=== PATIENT | male | born 1940 | race Caucasian/White ===

== ENCOUNTER → 2017-11-29 | Outpatient (CLI) | payer MEDICARE, OTHER ==
[~2017-11-29] MED LIST: AMIT10; AMLO5; CHOL10002; DIVA250EC; FISH1000; LOSARTAN POTAS100 MG; Mobic15 MG; PSYL5.85P; RANI150; ROSU10TA; SERT100; UBID10; VALS80; VITAMIN B; Viagra100 MG
[2017-11-29 14:21] LABS: Adenovirus F 40/41 Not Detected (NOT DETECT); Astrovirus Not Detected (NOT DETECT); Campylobacter Sp Not Detected (NOT DETECT); Cryptosporidium Not Detected (NOT DETECT); Cyclospora Cayetanensis Not Detected (NOT DETECT); E. Coli O157 Not Detected (NOT DETECT); Entamoeba Histolytica Not Detected (NOT DETECT); Enteroaggregative E. coli-EAEC Not Detected (NOT DETECT); Enteropathogenic E. coli-EPEC Not Detected (NOT DETECT); Enterotoxigenic E. coli-ETEC Not Detected (NOT DETECT); Giardia Lamblia Not Detected (NOT DETECT); Norovirus GI/GII Not Detected (NOT DETECT); Plesiomonas Shigelloides Not Detected (NOT DETECT); Rotavirus A Not Detected (NOT DETECT); Salmonella Sp Not Detected (NOT DETECT); Sapovirus Not Detected (NOT DETECT); Shiga Toxin-prod E. coli-STEC Not Detected (NOT DETECT); Shigella/Enteroin E. coli-EIEC Not Detected (NOT DETECT); Vibrio Cholerae Not Detected (NOT DETECT); Vibrio Sp Not Detected (NOT DETECT); Yersinia Enterocolitica Not Detected (NOT DETECT)
== END ==
LOC: LAB 14:18
PROVIDERS: Internal Medicine Gastroenterology
DX: R19.7 Diarrhea, unspecified (principal); R10.84 Generalized abdominal pain
CPT/HCPCS: 87507

== ENCOUNTER → 2017-12-28 | Outpatient (CLI) | payer MEDICARE, OTHER ==
[2017-12-31 13:46] LABS: Stool Occult Bld Immuno 2 Negative (NEGATIVE)
== END ==
LOC: LAB SHORT 10:11 → LAB 10:11
PROVIDERS: Internal Medicine Gastroenterology
DX: R19.4 Change in bowel habit (principal); Z86.010 Personal history of colon polyps
CPT/HCPCS: G0328

== ENCOUNTER → 2019-03-04 | Outpatient (CLI) | payer MEDICARE, OTHER | END | disposition home or self-care (01) | LOC: LAB SHORT 09:54 → LAB 09:54 | DX: M48.061 Spinal stenosis, lumbar region without neurogenic claudication (principal); F12.90 Cannabis use, unspecified, uncomplicated | CPT/HCPCS: G0480 ==

== ENCOUNTER 2020-11-01 08:01 | Day surgery (SDC) | payer MEDICARE, OTHER ==
[~2020-11-01] VITALS: Ht 167.6 cm; Wt 83.0 kg
[~2020-11-01 08:01] MED LIST changes: +CILO100 PO; +CITA20 PO; -DIVA250EC; +DIVA250EC PO; +Inderal40 MG PO; -LOSARTAN POTAS100 MG; +LOSARTAN POTAS100 MG PO; +OMEP20ER PO; -Viagra100 MG; +Viagra100 MG PO
[2020-11-01 08:51] LABS: Influenza A, PCR NEGATIVE (NEGATIVE); Influenza B, PCR NEGATIVE (NEGATIVE); Resp Syncytial Virus, PCR NEGATIVE (NEGATIVE); SARS-Cov-2 (COVID-19) PCR, MMC NEGATIVE (NEGATIVE)
--- NOTE | 2020-11-01 14:07 | NUR ---
PT DRESSED, IV DC'D INTACT, L GROIN SITE STABLE, PT DC'D BY WC BY RILEY CHUNG WITH PRESENET AND DRIVING PT HOME.
[2020-12-21] MEDS ORDERED: CLOP75 PO (13:45)
[2020-12-21] MEDS ORDERED: Pravachol40 MG PO (13:46)
[2020-12-21] MEDS ORDERED: Ultram50 MG PO (13:48)
== END 2020-11-01 15:07 | disposition home or self-care (01) ==
LOC: MHTC 08:01
PROVIDERS: Radiology Diagnostic Radiology
DX: I70.213 Atherosclerosis of native arteries of extremities with intermittent claudication, bilateral legs (principal); I12.9 Hypertensive chronic kidney disease with stage 1 through stage 4 chronic kidney disease, or unspecified chronic kidney disease; N18.2 Chronic kidney disease, stage 2 (mild); E78.5 Hyperlipidemia, unspecified; K21.9 Gastro-esophageal reflux disease without esophagitis; G40.909 Epilepsy, unspecified, not intractable, without status epilepticus; Z88.1 Allergy status to other antibiotic agents; Z88.8 Allergy status to other drugs, medicaments and biological substances; Z20.822 Contact with and (suspected) exposure to COVID-19
CPT/HCPCS: 0241U; 37228; 37232; 75625; 75716; 75774; 85347; 99152; 99153; C1714; C1725; C1757; C1760; C1769; C1874; C1887; C1894; C2623; C9767; J1644; J2250; J3010; J7030; J7050; Q9967

== ENCOUNTER 2020-12-22 08:29 | Day surgery (SDC) | payer MEDICARE, OTHER ==
[~2020-12-22] VITALS: Ht 167.6 cm; Wt 82.7 kg
[~2020-12-22 08:29] MED LIST changes: +CLOP75 PO; +Pravachol40 MG PO; +Ultram50 MG PO
[2020-12-22] MEDS ORDERED: Amitriptyline H10 MG PO (09:35)
--- NOTE | 2020-12-22 16:24 | NUR ---
DISCHARGE PT REMAINED A&OX3 AND DENIED ANY PAIN DURING RECOVERY. R GROIN SITE REMAINED CDI-NO HEMATOMA NOTED. IV DC'D WITH CANULA INTACT. PT ABLE TO DRESS SELF WITH ASSITANCE FROM SPOUSE. PT UP TO RESTROOM WITH SHUFFLED GAIT (SPOUSE STATED THIS IS USUAL FOR AMUBLATION) TO VOID. DISCHARGE PAPERWORK GONE OVER WITH PT AND SPOUSE. PT AND SPOUSE VERBALY STATED THE UNDERSTANDING OF THE DISHCARGE EDUCATION AND DENIED ANY QUESTIONS AT THIS TIME. PT WHEELED OUT BY THIS NURSE.
== END 2020-12-22 15:30 | disposition home or self-care (01) ==
LOC: MHTC 08:29
DX: I70.213 Atherosclerosis of native arteries of extremities with intermittent claudication, bilateral legs (principal); I12.9 Hypertensive chronic kidney disease with stage 1 through stage 4 chronic kidney disease, or unspecified chronic kidney disease; N18.2 Chronic kidney disease, stage 2 (mild); E78.5 Hyperlipidemia, unspecified; K21.9 Gastro-esophageal reflux disease without esophagitis; F32.9 Major depressive disorder, single episode, unspecified; G40.909 Epilepsy, unspecified, not intractable, without status epilepticus; Z87.891 Personal history of nicotine dependence
CPT/HCPCS: 75716; 75774; 85347; 99152; 99153; C1725; C1757; C1760; C1769; C1887; C1894; C9764; C9772; J1644; J2250; J3010; J7030; J7050; Q9967

== ENCOUNTER 2021-02-09 11:17 | Day surgery (SDC) | payer MEDICARE, OTHER ==
[~2021-02-09] VITALS: Ht 167.6 cm; Wt 85.7 kg
[~2021-02-09 11:17] MED LIST changes: +Amitriptyline H10 MG PO
[2021-02-09] MEDS ORDERED: ASPIR 8181 M1 PO (11:59)
--- NOTE | 2021-02-09 12:17 | NUR ---
PATIENT READY FOR PROCEDURE. ALLOWED TO THE BEDSIDE. CONSENTS AND ADMISSION ASSESSMENTS COMPLETE. CALL LIGHT IN REACH.
--- NOTE | 2021-02-09 18:35 | NUR ---
pt up and dressed. groin site and pedal site stable. discharge gone over with and with pt, both verbalize understanding. saline lock out with catheter intact. pt to private vehicle per w/c.
== END 2021-02-09 22:56 | disposition home or self-care (01) ==
LOC: MHTC 11:17
DX: I70.213 Atherosclerosis of native arteries of extremities with intermittent claudication, bilateral legs (principal); I12.9 Hypertensive chronic kidney disease with stage 1 through stage 4 chronic kidney disease, or unspecified chronic kidney disease; N18.2 Chronic kidney disease, stage 2 (mild); K21.9 Gastro-esophageal reflux disease without esophagitis; E78.5 Hyperlipidemia, unspecified; G40.909 Epilepsy, unspecified, not intractable, without status epilepticus; Z79.82 Long term (current) use of aspirin; Z98.62 Peripheral vascular angioplasty status; Z87.891 Personal history of nicotine dependence; Z88.1 Allergy status to other antibiotic agents; Z88.8 Allergy status to other drugs, medicaments and biological substances; Z79.02 Long term (current) use of antithrombotics/antiplatelets
CPT/HCPCS: 36140; 37224; 37228; 75625; 75716; 75774; 76937; 85347; 99152; 99153; C1725; C1760; C1769; C1887; C1894; J1644; J2250; J3010; J7030; J7040; J7050; Q9967

== ENCOUNTER 2021-10-17 06:55 | Day surgery (SDC) | payer MEDICARE, OTHER ==
[~2021-10-17] VITALS: Ht 167.6 cm; Wt 86.5 kg
[~2021-10-17 06:55] MED LIST changes: +ASPIR 8181 M1 PO
== END 2021-10-17 09:52 | disposition home or self-care (01) ==
LOC: ORSCSDS 06:55
PROVIDERS: Orthopaedic Surgery
PROC: 01S40ZZ Reposition Ulnar Nerve, Open Approach (ICD-10-PCS; principal; 2021-10-17 08:00)
PROC: 01N50ZZ Release Median Nerve, Open Approach (ICD-10-PCS; principal; 2021-10-17 08:00)
DX: G56.02 Carpal tunnel syndrome, left upper limb (principal); G56.22 Lesion of ulnar nerve, left upper limb; I10 Essential (primary) hypertension; K21.9 Gastro-esophageal reflux disease without esophagitis; G47.33 Obstructive sleep apnea (adult) (pediatric); Z79.899 Other long term (current) drug therapy
CPT/HCPCS: J0690; J1100; J2370; J2405; J2704; J2795; J3010; J7120

== ENCOUNTER 2022-01-04 10:38 | Day surgery (SDC) | payer MEDICARE, OTHER ==
[~2022-01-04] VITALS: Ht 167.6 cm; Wt 81.8 kg
[~2022-01-04 10:38] MED LIST changes: +CYCL10 PO; +KATERZIA1 MG/1 ML PO; +ROSU10TA PO; +TRAM50 PO
[2022-01-04] MEDS ORDERED: VENL75ER PO (11:06)
== END 2022-01-04 12:12 | disposition home or self-care (01) ==
LOC: ORSCSDS 10:38
PROVIDERS: Ophthalmology
PROC: 08RJ3JZ Replacement of Right Lens with Synthetic Substitute, Percutaneous Approach (ICD-10-PCS; principal; 2022-01-04 11:30)
DX: H25.13 Age-related nuclear cataract, bilateral (principal); I10 Essential (primary) hypertension; K27.9 Peptic ulcer, site unspecified, unspecified as acute or chronic, without hemorrhage or perforation; K21.9 Gastro-esophageal reflux disease without esophagitis; G47.33 Obstructive sleep apnea (adult) (pediatric); Z79.01 Long term (current) use of anticoagulants; Z79.82 Long term (current) use of aspirin; Z79.899 Other long term (current) drug therapy
CPT/HCPCS: J2001; J2250; J3010; J3301; J7040; V2632

== ENCOUNTER 2022-01-12 15:11 | Emergency (ER) | payer MEDICARE, OTHER ==
[~2022-01-12] VITALS: Ht 167.6 cm; Wt 81.7 kg
[~2022-01-12 15:11] MED LIST changes: +VENL75ER PO
[2022-01-12 15:55] LABS: BASOPHILS ABSOLUTE AUTO 0.06 K/mm3 (0.00-0.23); BASOPHILS PERCENT AUTO 1 % (0-2); EOSINOPHILS ABSOLUTE AUTO 0.24 K/mm3 (0.00-0.68); EOSINOPHILS PERCENT AUTO 3 % (0-6); Hematocrit 40.3 % (37.0-53.0); Hemoglobin 13.6 g/dL (13.5-17.5); IMMATURE GRAN ABSOLUTE AUTO 0.03 K/mm3 (0.00-0.10); IMMATURE GRAN PERCENT AUTO 0 % (0-1); LYMPHOCYTES ABSOLUTE AUTO 3.63 K/mm3 (0.84-5.20); LYMPHOCYTES PERCENT AUTO 41 % (21-46); MONOCYTES ABSOLUTE AUTO 0.98 K/mm3 (0.16-1.47); MONOCYTES PERCENT AUTO 11 % (4-13); Mean Corpuscular HGB 31.6 pg (26.0-34.0); Mean Corpuscular HGB Conc 33.7 g/dL (31.5-36.5); Mean Corpuscular Volume 94 fL (80-100); NEUTROPHILS ABSOLUTE AUTO 4.01 K/mm3 (1.96-9.15); NEUTROPHILS PERCENT AUTO 45 % (41-73); Platelet Count 260 K/mm3 (150-400); RDW Coefficient Variation 13.2 % (11.7-14.2); Red Blood Cell Count 4.31 M/mm3 (4.30-5.90); White Blood Cell Count 8.95 K/mm3 (4.00-11.30)
[2022-01-12 16:08] LABS: Alanine Aminotransfer (ALT/SGP 28 U/L (12-78); Albumin, Blood 3.6 g/dL (3.4-5.0); Alk Phos 62 U/L (50-136); Anion Gap 6 mmol/L (6-16); Aspartate Aminotrans (AST/SGOT 20 U/L (12-37); Bilirubin, Total 0.3 mg/dL (0.1-1.0); Blood Urea Nitrogen 29 mg/dL (8-24); Bun/Creatinine Ratio 26.6 (12.0-20.0); CO2, Blood 25 mmol/L (21-32); Calcium, Blood 9.1 mg/dL (8.5-10.1); Chloride, Blood 108 mmol/L (98-108); Creatinine, Blood 1.09 mg/dL (0.60-1.20); Globulin, Blood 3.6 g/dL (2.2-4.0); Glomerular Filtration Rate >60 (60-); Glucose, Blood 93 mg/dL (70-99); Potassium, Blood 4.2 mmol/L (3.5-5.5); Sodium, Blood 139 mmol/L (136-145); Total Protein, Blood 7.2 g/dL (6.4-8.2)
[2022-01-12 18:18] LABS: Valproic Acid 44.5 ug/mL (50.0-100.0)
[2022-01-12 20:41] LABS: Influenza A, PCR NEGATIVE (NEGATIVE); Influenza B, PCR NEGATIVE (NEGATIVE); Resp Syncytial Virus, PCR NEGATIVE (NEGATIVE); SARS-Cov-2 (COVID-19) PCR, MMC NEGATIVE (NEGATIVE)
== END 2022-01-12 20:51 | disposition short-term general hospital (02) ==
LOC: ER 15:11
PROVIDERS: Emergency Medicine; Physician Assistant
DX: K92.2 Gastrointestinal hemorrhage, unspecified (principal); I10 Essential (primary) hypertension; Z20.822 Contact with and (suspected) exposure to COVID-19; Z88.1 Allergy status to other antibiotic agents; Z88.8 Allergy status to other drugs, medicaments and biological substances
CPT/HCPCS: 0241U; 36415; 74174; 80053; 80164; 85025; 86850; 86900; 86901; 93005; 93010; Q9967

== ENCOUNTER 2022-01-25 11:17 | Day surgery (SDC) | payer MEDICARE, OTHER ==
[~2022-01-25] VITALS: Ht 167.6 cm; Wt 86.7 kg
[~2022-01-25 11:17] MED LIST changes: +Amlodipine Bes2.5 MG PO; +PRAVASTATIN SOD40 MG PO
--- NOTE | 2022-01-25 11:43 | NUR ---
01/25/22 1143 Monika Michael CALL LIGHT WITHIN REACH. TETRACAINE AT 1140 PLEDGETT AT 1141.
== END 2022-01-25 12:40 | disposition home or self-care (01) ==
LOC: ORSCSDS 11:17
PROVIDERS: Ophthalmology
PROC: 08RK3JZ Replacement of Left Lens with Synthetic Substitute, Percutaneous Approach (ICD-10-PCS; principal; 2022-01-25 12:30)
DX: H25.12 Age-related nuclear cataract, left eye (principal); K21.9 Gastro-esophageal reflux disease without esophagitis; G47.33 Obstructive sleep apnea (adult) (pediatric); I10 Essential (primary) hypertension; E66.9 Obesity, unspecified; Z68.30 Body mass index [BMI] 30.0-30.9, adult; Z79.01 Long term (current) use of anticoagulants; Z79.82 Long term (current) use of aspirin; Z79.899 Other long term (current) drug therapy
CPT/HCPCS: J2001; J2250; J3010; J3301; J7040; V2632

== ENCOUNTER → 2022-08-29 | Outpatient (CLI) | payer MEDICARE, OTHER | END | disposition home or self-care (01) | LOC: LAB SHORT 09:15 | DX: Z48.89 Encounter for other specified surgical aftercare (principal) | CPT/HCPCS: 87070; 87075; 87205 ==

== ENCOUNTER 2022-10-11 02:32 | Day surgery (SDC) | payer MEDICARE, OTHER | END 2022-10-11 23:03 | disposition home or self-care (01) | LOC: WOUND 02:32 | DX: T81.31XA Disruption of external operation (surgical) wound, not elsewhere classified, initial encounter (principal); G40.909 Epilepsy, unspecified, not intractable, without status epilepticus; J44.9 Chronic obstructive pulmonary disease, unspecified; G62.9 Polyneuropathy, unspecified; L03.032 Cellulitis of left toe; I70.213 Atherosclerosis of native arteries of extremities with intermittent claudication, bilateral legs; M20.5X1 Other deformities of toe(s) (acquired), right foot; M20.5X2 Other deformities of toe(s) (acquired), left foot; Z87.891 Personal history of nicotine dependence | CPT/HCPCS: A9270 ==

== ENCOUNTER 2022-10-25 02:17 | Day surgery (SDC) | payer MEDICARE, OTHER ==
[~2022-10-25 02:17] MED LIST changes: +Cymbalta20 MG PO
== END 2022-10-25 22:45 | disposition home or self-care (01) ==
LOC: WOUND 02:17
DX: T81.31XA Disruption of external operation (surgical) wound, not elsewhere classified, initial encounter (principal); L03.032 Cellulitis of left toe; S91.302A Unspecified open wound, left foot, initial encounter; I70.213 Atherosclerosis of native arteries of extremities with intermittent claudication, bilateral legs; M20.5X1 Other deformities of toe(s) (acquired), right foot; M20.5X2 Other deformities of toe(s) (acquired), left foot; J44.9 Chronic obstructive pulmonary disease, unspecified; G40.909 Epilepsy, unspecified, not intractable, without status epilepticus; G62.9 Polyneuropathy, unspecified
CPT/HCPCS: A9270; G0463

== ENCOUNTER 2022-11-01 03:42 | Day surgery (SDC) | payer MEDICARE, OTHER | END 2022-11-01 22:36 | disposition home or self-care (01) | LOC: WOUND 03:42 | DX: T81.32XA Disruption of internal operation (surgical) wound, not elsewhere classified, initial encounter (principal); L03.032 Cellulitis of left toe; I70.213 Atherosclerosis of native arteries of extremities with intermittent claudication, bilateral legs; M20.5X1 Other deformities of toe(s) (acquired), right foot; M20.5X2 Other deformities of toe(s) (acquired), left foot; S91.302D Unspecified open wound, left foot, subsequent encounter | CPT/HCPCS: A9270; G0463 ==

== ENCOUNTER 2022-11-16 00:56 | Day surgery (SDC) | payer MEDICARE, OTHER | END 2022-11-16 22:46 | disposition home or self-care (01) | LOC: WOUND 00:56 | DX: L03.032 Cellulitis of left toe (principal); I70.213 Atherosclerosis of native arteries of extremities with intermittent claudication, bilateral legs; M20.5X1 Other deformities of toe(s) (acquired), right foot; M20.5X2 Other deformities of toe(s) (acquired), left foot; M79.672 Pain in left foot; S91.302D Unspecified open wound, left foot, subsequent encounter; X58.XXXD Exposure to other specified factors, subsequent encounter; J44.9 Chronic obstructive pulmonary disease, unspecified | CPT/HCPCS: G0463 ==

== ENCOUNTER 2023-08-26 07:56 | Day surgery (SDC) | payer MEDICARE, OTHER ==
[2023-08-26] VITALS (11 sets, daily range): BP systolic 113–174; BP diastolic 33–105
[~2023-08-26] VITALS: Ht 167.6 cm; Wt 85.3 kg
[~2023-08-26 07:56] MED LIST changes: +CODACE30 PO; +MULTIPLE VITAM1 EACH PO
--- NOTE | 2023-08-26 11:54 | NUR ---
PT BACK TO RECOVER FROM LAB. PT A&Ox4. PT SITTING UP IN BED EATING BREAKFAST. RADIAL SITE SOFT AND NON-TENDER PER PT. NO BLEEDING NOTED.
--- NOTE | 2023-08-26 12:22 | NUR ---
, ANN-MARIE, AT BEDSIDE W/ PT. PT FINISHED EATING LUNCH. PT GIVEN ICE WATER PER REQUEST.
--- NOTE | 2023-08-26 12:40 | NUR ---
2CC REMOVED FROM TR BAND. NO BLEEDING NOTED. SITE SOFT AND NON-TENDER PER PT.
--- NOTE | 2023-08-26 12:48 | NUR ---
2CC REMOVED FROM TR BAND. SITE SOFT AND NON-TENDER. NO BLEEDING NOTED.
--- NOTE | 2023-08-26 13:55 | NUR ---
2cc removed from tr band. site soft and non-tender. no bleeding noted. dr barber at bedside to [facility] plan of care with pt and pt's .
--- NOTE | 2023-08-26 14:00 | NUR ---
pt ambulated to restroom w/ assistance from . pt now back in bed. repeat v/s.
--- NOTE | 2023-08-26 14:01 | NUR ---
tr band fully deflated. no bleeding noted. site soft and non-tender.
--- NOTE | 2023-08-26 14:56 | NUR ---
PT GIVEN DC INSTRUCTIONS AND VERBALIZED UNDERSTANDING. IV OUT. RADIAL SITE SOFT AND NON-TENDER PER PT. NO BLEEDING NOTED. CLOTH DOT, ARM BOARD AND SLING APPLIED. PT CHNAGED INTO CLOTHES. PT TAKEN TO PARKING LOT VIA WC. TO TAKE PT HOME.
== END 2023-08-26 14:45 | disposition home or self-care (01) ==
LOC: MHTC 07:56
DX: I25.10 Atherosclerotic heart disease of native coronary artery without angina pectoris (principal); E78.5 Hyperlipidemia, unspecified; N18.9 Chronic kidney disease, unspecified; G47.33 Obstructive sleep apnea (adult) (pediatric); I73.9 Peripheral vascular disease, unspecified; I12.9 Hypertensive chronic kidney disease with stage 1 through stage 4 chronic kidney disease, or unspecified chronic kidney disease
CPT/HCPCS: 76937; 93454; 99152; 99153; A9270; C1769; C1887; C1894; J1644; J2250; J3010; J7030; J7050; Q9967

== ENCOUNTER → 2024-08-25 | Outpatient (CLI) | payer MEDICARE, OTHER ==
[2024-08-25 17:02] LABS: BASOPHILS ABSOLUTE AUTO 0.02 K/mm3 (0.00-0.23); BASOPHILS PERCENT AUTO 0 % (0-2); EOSINOPHILS ABSOLUTE AUTO 0.09 K/mm3 (0.00-0.68); EOSINOPHILS PERCENT AUTO 1 % (0-6); Hematocrit 44.3 % (37.0-53.0); Hemoglobin 15.2 g/dL (13.5-17.5); IMMATURE GRAN ABSOLUTE AUTO 0.09 K/mm3 (0.00-0.10); IMMATURE GRAN PERCENT AUTO 1 % (0-1); LYMPHOCYTES ABSOLUTE AUTO 2.38 K/mm3 (0.84-5.20); LYMPHOCYTES PERCENT AUTO 33 % (21-46); MONOCYTES ABSOLUTE AUTO 1.07 K/mm3 (0.16-1.47); MONOCYTES PERCENT AUTO 15 % (4-13); Mean Corpuscular HGB 33.3 pg (26.0-34.0); Mean Corpuscular HGB Conc 34.3 g/dL (31.5-36.5); Mean Corpuscular Volume 97 fL (80-100); NEUTROPHILS ABSOLUTE AUTO 3.51 K/mm3 (1.96-9.15); NEUTROPHILS PERCENT AUTO 49 % (41-73); Platelet Count 244 K/mm3 (150-400); RDW Coefficient Variation 13.9 % (11.7-14.2); RDW Standard Deviation 50.2 fL (35.1-46.3); Red Blood Cell Count 4.56 M/mm3 (4.30-5.90); White Blood Cell Count 7.16 K/mm3 (4.00-11.30)
[2024-08-25 17:12] LABS: Albumin, Blood 3.7 g/dL (3.4-5.0); Albumin/Globulin Ratio 0.9 (0.8-1.8); Bilirubin, Total 0.4 mg/dL (0.1-1.0); Bun/Creatinine Ratio 17.8 (12.0-20.0); Calcium, Blood 9.1 mg/dL (8.5-10.1); Creatinine, Blood 1.85 mg/dL (0.60-1.20); Potassium, Blood 5.2 mmol/L (3.5-5.5); Total Protein, Blood 7.7 g/dL (6.4-8.2)
== END | disposition home or self-care (01) ==
LOC: LAB 16:58 → LAB SHORT 16:58
PROVIDERS: Physician Assistant
DX: R10.9 Unspecified abdominal pain (principal)
CPT/HCPCS: 80053; 83690; 85025

== ENCOUNTER → 2025-02-26 | Outpatient (CLI) | payer MEDICARE, OTHER ==
[2025-02-26 18:44] LABS: Adenovirus F 40/41 Not Detected (NOT DETECT); Astrovirus Not Detected (NOT DETECT); Campylobacter Sp Not Detected (NOT DETECT); Cryptosporidium Not Detected (NOT DETECT); Cyclospora Cayetanensis Not Detected (NOT DETECT); E. Coli O157 Not Detected (NOT DETECT); Entamoeba Histolytica Not Detected (NOT DETECT); Enteroaggregative E. coli-EAEC Not Detected (NOT DETECT); Enteropathogenic E. coli-EPEC Not Detected (NOT DETECT); Enterotoxigenic E. coli-ETEC Not Detected (NOT DETECT); Giardia Lamblia Not Detected (NOT DETECT); Norovirus GI/GII Not Detected (NOT DETECT); Plesiomonas Shigelloides Not Detected (NOT DETECT); Rotavirus A Not Detected (NOT DETECT); Salmonella Sp Not Detected (NOT DETECT); Sapovirus Not Detected (NOT DETECT); Shiga Toxin-prod E. coli-STEC Not Detected (NOT DETECT); Shigella/Enteroin E. coli-EIEC Not Detected (NOT DETECT); Vibrio Cholerae Not Detected (NOT DETECT); Vibrio Sp Not Detected (NOT DETECT); Yersinia Enterocolitica Not Detected (NOT DETECT)
[2025-02-27 12:23] LABS: Stool Occult Bld Immuno 1 Positive (NEGATIVE)
[2025-03-03 14:54] LABS: CALPROTECTIN,FECAL 67 ug/g (<=49)
== END ==
LOC: LAB 13:04 → LAB SHORT 13:04
PROVIDERS: Family Medicine
DX: R19.7 Diarrhea, unspecified (principal)
CPT/HCPCS: 83993; 87015; 87045; 87046; 87205; 87507; 87899; G0328

== ENCOUNTER → 2025-03-26 | Outpatient (CLI) | payer MEDICARE, OTHER ==
[2025-03-26 20:39] LABS: C DIFFICILE DNA NEGATIVE (Negative)
[2025-03-29 09:15] LABS: ROTAVIRUS AG BY EIA Negative (Negative)
[2025-03-29 13:29] LABS: GIARDIA ANTIGEN BY EIA Negative (Negative)
[2025-03-29 13:31] LABS: CRYPTOSPORIDIUM ANTIGEN BY EIA Negative (Negative)
[2025-03-30 14:46] LABS: NOROVIRUS 1 BY PCR Not Detected; NOROVIRUS 2 BY PCR Not Detected
== END ==
LOC: LAB SHORT 15:05 → LAB 15:05
PROVIDERS: Family Medicine
DX: R19.7 Diarrhea, unspecified (principal)
CPT/HCPCS: 87328; 87329; 87425; 87493; 87798

== ENCOUNTER → 2025-07-16 | Outpatient (CLI) | payer OTHER ==
[2025-07-17 08:27] LABS: Campylobacter Sp Not Detected (NOT DETECT); E. Coli O157 Not Detected (NOT DETECT); Enteroaggregative E. coli-EAEC Not Detected (NOT DETECT); Enteropathogenic E. coli-EPEC Not Detected (NOT DETECT); Enterotoxigenic E. coli-ETEC Not Detected (NOT DETECT); Salmonella Sp Not Detected (NOT DETECT); Shiga Toxin-prod E. coli-STEC Not Detected (NOT DETECT); Shigella/Enteroin E. coli-EIEC Not Detected (NOT DETECT); Vibrio Sp Not Detected (NOT DETECT)
== END ==
LOC: LAB SHORT 03:40 → LAB 03:40
PROVIDERS: Hospitalist
DX: R19.7 Diarrhea, unspecified (principal)
CPT/HCPCS: 87507